=== PATIENT | female | born 1995 | race Asian ===

== ENCOUNTER 2021-06-20 14:52 | Emergency (ER) | payer SELFPAY ==
[~2021-06-20] VITALS: Ht 165.1 cm; Wt 54.4 kg
--- NOTE | 2021-06-20 15:00 | NUR ---
Brought by EMS and [employer]; patient is very agitated, requiring four-point restraints for safety. The patient appears to be very confuse and does not follow simple verbal commands. Plan of care discussed with the ER physician, with orders for medical restraints as well as Ativan, Haldol, and Benadryl.
--- NOTE | 2021-06-20 15:05 | NUR ---
RECEVED pt 26 yrs old female shoutiong and confused screaming with pramided and hand caff by [employer] PT confused place pt on 4 point soft restrain
--- NOTE | 2021-06-20 15:06 | NUR ---
PT ON BEHAVIOR RESTRAIN 4 POINT NYLON VELCRO SKIN CHECKED Q 15 MIN MOINTOR PT PAULIE
[2021-06-20] MEDS ORDERED: LORAZEPAM INJ 2 MG/ML VIAL ONE (15:15)
[2021-06-20] MEDS ORDERED: diphenhydrAMINE HCL 50 MG/ML VIAL ONE (15:15)
[2021-06-20] MEDS ORDERED: HALOPERIDOL LACTATE INJ 5 MG/ML VIAL ONE (15:16)
[2021-06-20 15:17] LABS: BASOPHILS # (AUTO) 0.1 K/uL (0.0-0.2); BASOPHILS % (AUTO) 0.9 % (0.0-2.0); EOSINOPHILS % (AUTO) 0.3 % (0.0-6.0); HEMATOCRIT 41 % (33-45); HEMOGLOBIN 13.7 g/dL (11.5-14.8); LYMPHOCYTES # (AUTO) 1.7 K/uL (0.8-4.8); LYMPHOCYTES % (AUTO) 18.9 % (20.0-44.0); MEAN CORPUSCULAR HGB CONC 33 g/dl (31.0-36.0); MEAN CORPUSCULAR VOLUME 89 fL (82-100); MONOCYTES # (AUTO) 0.9 K/uL (0.1-1.30); MONOCYTES % (AUTO) 9.9 % (2.0-12.0); NEUTROPHILS # (AUTO) 6.3 K/uL (1.8-8.9); PLATELET COUNT (AUTO) 273 K/uL (150-450); RED BLOOD CELL COUNT(AUTO) 4.61 MIL/uL (4.0-5.2)
--- NOTE | 2021-06-20 15:21 | NUR ---
URINE COLLECTED AND SENT
[2021-06-20 15:28] LABS: ALANINE AMINOTRANSFERASE 58 U/L (12-78); ALBUMIN 4.5 g/dL (3.4-5.0); ALCOHOL, BLOOD < 3 mg/dL (0-0); ALKALINE PHOSPHATASE 58 U/L (46-116); ASPARTATE AMINOTRANSFERASE 32 U/L (15-37); BILIRUBIN,DIRECT 0.3 mg/dL (0.0-0.2); CALCIUM, SERUM 10.2 mg/dL (8.5-10.1); CARBON DIOXIDE 24 mmol/L (21-32); CHLORIDE 108 mmol/L (98-107); CREATININE 1.3 mg/dL (0.6-1.3); GLUCOSE 123 mg/dL (74-106); POTASSIUM 3.7 mmol/L (3.5-5.1); SODIUM SERUM 147 mmol/L (136-145); TOTAL PROTEIN, SERUM 7.7 g/dL (6.4-8.2); UREA NITROGEN, BLOOD 17 mg/dL (7-18)
[2021-06-20] MEDS ORDERED: LORAZEPAM INJ 2 MG/ML VIAL IM ONE ×2 (15:30→16:00)
[2021-06-20] MEDS ORDERED: HALOPERIDOL LACTATE INJ 5 MG/ML VIAL IM ONE ×2 (15:30→16:00)
[2021-06-20] MEDS ORDERED: IV NS 0.9% 1,000 ML BAG IV ONE (15:30)
[2021-06-20] MEDS ORDERED: diphenhydrAMINE HCL 50 MG/ML VIAL IM ONE (15:30)
[2021-06-20 15:36] LABS: ACETAMINOPHEN 0 ug/ml (10-30)
--- NOTE | 2021-06-20 15:45 | NUR ---
The patient was seen and assessed at bedside, remains confused, does not follow simple verbal commands The patient also appears agitated requiring the use of medical restraint for now
--- NOTE | 2021-06-20 16:00 | NUR ---
RESLESS on and of closly obsere pt any change
[2021-06-20 16:10] LABS: BILIRUBIN,URINE MODERATE (NEGATIVE); COLOR,URINE YELLOW (YELLOW); LEUKOCYTE ESTERASE ,URINE TRACE (NEGATIVE); NITRITE, URINE NEGATIVE (NEGATIVE); PH,URINE 7.5 (5.0-8.0); PROTEIN,URINE 30 mg/dl (NEGATIVE); UGLUCOSE NEGATIVE (NEGATIVE)
--- NOTE | 2021-06-20 16:24 | NUR ---
PT RESTING IN BED, VSS STABLE, ATIVAN AND HALDOL WITHHELD.
[2021-06-20 16:29] LABS: BACTERIA,URINE Moderate /HPF (None Seen)
[2021-06-20 16:30] LABS: MUCUS,URINE Few /LPF (None Seen); SQUAMOUS EPITHELIAL CELL,UR Many /HPF (None Seen)
--- NOTE | 2021-06-20 17:57 | NUR ---
asleepy closly obseve
--- NOTE | 2021-06-20 18:42 | NUR ---
tryer to d/c restraine 4 point closly observe bankruptcy processor at bed side clsly observe
--- NOTE | 2021-06-20 19:25 | NUR ---
hand off aury stewart
--- NOTE | 2021-06-20 19:40 | NUR ---
PT IS SLEEPING, DROWSY UPON WAKENING. PT DOES NOT VERBALIZE OF ANY PAIN. SITTER WITH IN SIGHT. WILL CONTINUE TO MONITOR.
--- NOTE | 2021-06-20 19:40 | NUR ---
RECEIVED REPORT FROM GOKUL VELA FOR PHILLIP
--- NOTE | 2021-06-20 21:33 | NUR ---
PT AMBULATED TO BATHROOM WITH ASSISTANCE, STEADY GAIT NOTED.
--- NOTE | 2021-06-20 23:32 | NUR ---
PT IS SLEEPING, V/S STABLE. WILL CONTINUE TO MONITOR.
--- NOTE | 2021-06-21 01:59 | NUR ---
PROVIDED PT WITH FOOD AND JUICE, WILL CONTINUE TO MONITOR.
--- NOTE | 2021-06-21 04:18 | NUR ---
PT IS SLEEPING BUT EASILY AROUSABLE. DENIES ANY PAIN. WILL CONTINUE TO MONITOR
--- NOTE | 2021-06-21 05:27 | NUR ---
PT IS AWAKE A ALERT, FOLLOWS SIMPLE COMMNADS.
[2021-06-21 08:25] VITALS: BP 105/61
--- NOTE | 2021-06-21 08:27 | NUR ---
Patient discharged to home in stable condition. Written and verbal after care instructions given. Patient verbalizes understanding of instruction.
== END 2021-06-21 08:25 | disposition home or self-care (01) ==
LOC: ER 14:58
DX: R45.1 Restlessness and agitation (principal); F29 Unspecified psychosis not due to a substance or known physiological condition; F19.10 Other psychoactive substance abuse, uncomplicated
CPT/HCPCS: 36415; 51702; 80048; 80076; 80143; 80307; 80320; 81001; 84703; 85025; 87086; 96360; 96372 ×2; 99285; J1200; J1630; J2060; J7030; G0480